=== PATIENT | male | born 1960 | race Caucasian/White ===

== ENCOUNTER 2018-07-04 10:19 | Emergency (ER) | payer BC ==
--- NOTE | 2018-07-04 10:36 | EDPHY ---
H & P Time Seen by Provider: 07/04/18 10:21 HPI/ROS: CHIEF COMPLAINT: Left leg swelling and pain HISTORY OF PRESENT ILLNESS: Patient twisted his knee about a month ago and feels like he is recovering from it, but over the last week his left calf has become more swollen and painful. He notices increase in the diameter of his calf with more prominent surface veins. Worse with walking. Not associated with weakness or numbness in the foot or chest pain or shortness of breath. Symptoms moderate. Usually gets his INR checked last time was in April, but typically in the therapeutic range without being over or under. REVIEW OF SYSTEMS: Eye: no change in vision ENT: no sore throat Cardiac: no chest pain or syncope Pulmonary: no cough or SOB Abdomen: no vomiting, diarrhea, abdominal pain Musculoskeletal: HPI Skin: no rash Neuro: no headache Constitutional: no fever : no urinary symptoms A comprehensive 10 point review of systems is otherwise negative aside from elements mentioned in the history of present illness. 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 Jose Martin Thomas General Appearance: Alert and conversant, cooperative. Eyes: No scleral icterus. ENT, Mouth: Normal mucous membranes. Respiratory: Normal respiratory effort, breath sounds equal, lungs are clear to auscultation. Cardiovascular: Regular rate and rhythm. Gastrointestinal: Abdomen is soft and non tender. Neurological: Alert, face symmetric, normal motor and sensory in extremities. Specifically has normal motor and sensory in the left foot. Normal dorsalis pedis pulse in the left foot. Skin: No left leg redness or warmth or blisters. He does have prominent varicose veins in the left calf. Musculoskeletal: Left leg more swollen than the right but compartments are soft in the calf. Psychiatric: Not agitated. Emergency Department course/MDM: Plan for ultrasound and check INR 1211: Normal ultrasound of both deep and superficial veins per Dr. Hector, no clot. Discussed the patient at this time. Recommended ice, compression wrap which he has at home, Tylenol. More likely to be muscular swelling, does not have compartment syndrome clinically. Smoking Status: Never smoked Constitutional: Initial Vital Signs Temperature (C) 36.9 C 07/04/18 10:24 Heart Rate 92 07/04/18 10:24 Respiratory Rate 16 07/04/18 10:24 Blood Pressure 128/83 H 07/04/18 10:24 O2 Sat (%) 95 07/04/18 10:24 O2 Delivery Mode Room Air Allergies/Adverse Reactions: NSAIDS (Non-Steroidal Anti-Inflamma [Nsaids] Allergy (Unknown, Verified 10:23) Home Medications: Medication Instructions Recorded Warfarin Sodium [Coumadin] 15 mg PO DAILY 09/27/10 Milk Thistle 1 gm MC 01/01/13 Multivitamen 01/01/13 Medical Decision Making - Diagnostics Imaging Results: Imaging Impressions Extremity Venous Study 07/04/18 10:35 Impression: No deep venous thrombosis in the left lower extremity. Findings discussed with Valentin Miner M.D. at 12:10 hour, 07/04/2018. Imaging: Discussed imaging studies w/ call taker Radiologist Differential Diagnosis: Differential considered including but not limited to fracture, cellulitis, fasciitis, arterial or venous occlusion, [place] cyst, compartment syndrome, hematoma or abscess. - Data Points Laboratory Results: 07/04/18 10:45 PT 30.6 SEC H SEC (12.0-15.0) INR 2.95 H (0.83-1.16) Departure - Departure Disposition: Home, Routine, Self-Care Clinical Impression: Swelling of left lower extremity Condition: Good Instructions: Leg Edema (ED) Additional Instructions: No DVT on ultrasound. INR 2.95 today. Referrals: Jose Martin Thomas MD [Primary Care Provider] - As per Instructions
[2018-07-04 11:05] LABS: INR 2.95 (0.83-1.16); PROTIME(PATIENT) 30.6 SEC (12.0-15.0)
[2018-07-04 11:59] VITALS: BP 139/92
== END 2018-07-04 12:28 | disposition home or self-care (01) ==
DX: R22.42 Localized swelling, mass and lump, left lower limb (principal)